=== PATIENT | male | born 1955 ===

== ENCOUNTER → 2016-11-30 | Outpatient (CLI) | payer OTHER ==
--- NOTE | ~2016-11-30 | EKG ---
[address] [facility] [place] [address] ELECTROCARDIOGRAM REPORT Name: NICOLE ZHOU Room #: REG CLI MSudheer#: [id number] Admission: 11/30/16 Attend Phys: John Munoz MD Discharge: Date of : 53 Report #: [id number] THIS REPORT FOR: //name// [facility] Test Date: 2016-11-30 Test Time: 14:46:54 Pat Name: NICOLE ZHOU Department: Room: Gender: Gold Marker: Yesica GONZALEZ : 1955 Requested By: John Munoz Order Number: [id number] MD: Scott Rodriguez Measurements Intervals [place] Rate: 90 P: 32 WI: 168 QRS: -15 QRSD: 94 T: 20 QT: 351 QTc: 430 Interpretive Statements Sinus rhythm Inferior infarct, old Anteroseptal infarct, old No previous ECG available for comparison Electronically Signed On 12-01-2016 8:24:20 CDT by Scott Rodriguez [email or web address] <ELECTRONICALLY SIGNED> By: Scott Rodriguez MD, [facility] 12/01/16 0824 [id number] [id number] Scott Rodriguez MD, FACC /EPI
== END ==
LOC: RAD 14:08
DX: Z13.9 Encounter for screening, unspecified (principal); L97.512 Non-pressure chronic ulcer of other part of right foot with fat layer exposed; E11.621 Type 2 diabetes mellitus with foot ulcer